=== PATIENT | female | born 1985 ===

== ENCOUNTER 2022-06-25 08:02 | Day surgery (SDC) | payer OTHER | END 2022-06-25 22:45 | disposition home or self-care (01) | LOC: CIR.AMB 08:02 | PROVIDERS: ATTEND Surgery | DX: K62.1 Rectal polyp (principal); K64.4 Residual hemorrhoidal skin tags; Z20.822 Contact with and (suspected) exposure to COVID-19; Z86.16 Personal history of COVID-19 ==